=== PATIENT | male | born 1980 | race Asian ===

== ENCOUNTER 2024-12-28 16:08 | Emergency (ER) | payer BC, SELFPAY ==
[2024-12-28 16:10] VITALS: BP 141/96
[2024-12-28 16:34] VITALS: BP 147/101
[2024-12-28 16:35] VITALS: BMI 24.3
[2024-12-28 16:36] VITALS: BP 140/89
--- NOTE | 2024-12-28 16:55 | EDRN ---
Dr. Rivas in room w / pt at this time.
[2024-12-28 16:57] LABS: Hematocrit 46.9 % (39.0-52.0); Hemoglobin 16.0 g/dL (13.0-18.0); Mean Corp Hgb Conc. 34.1 g/dL (33.0-37.0); Mean Corpuscular Volume 86.5 fL (80.0-94.0); Nucleated Red Blood Cells % 0 % (-); Platelet Count 180 10^3/uL (130-400); Red Cell Dist. Width 13.0 % (11.5-14.5)
[2024-12-28 17:00] VITALS: BP 121/75
--- NOTE | 2024-12-28 17:01 | ED.GENMED ---
History of Present Illness
<Carter Rivas MD, Resident - Last Filed: 12/28/24 17:52>
General
Chief Complaint: Heart Rate Problem
Source: patient
Time Seen by Provider: 12/28/24 16:35
History of Present Illness
History of Present Illness:
Patient is a 44-year-old male with PMH of STEMI s/p RCA stents x 2 (2012), NSTEMI w/ stent restenosis s/p angioplasty and placement of new RCA stent (2021), intraoperative VT, SVT, atrial fibrillation (2021), HTN, T2DM and HLD who presents to the
[place] ED with an episode of tachycardia this afternoon. Patient was standing while chatting with friends around 2 PM when he developed palpitations and fast heart rate that were associated with weakness, exhaustion, shortness of breath,
diaphoresis, and lightheadedness. Patient stepped outside and drank less water. The tachycardia and palpitations lasted approximately 2 minutes. Patient checked his Apple Watch during the episode, and showed a heart rate of 220 bpm. This episode
does not feel like his prior DC episodes. At the bedside, patient has no current symptoms. Denies chest pain, arm pain, jaw pain, fever, chills, abdominal pain, N/V/D, or urinary symptoms. Denies recent drug or alcohol use.
Past History
<Carter Rivas MD, Resident - Last Filed: 12/28/24 17:52>
Past History
ED Past Medical History: CAD (Single vessel), HTN, Hypercholesterolemia, DC and Psychiatric (Anxiety)
ED Past Surgical History: None
Social History
Tobacco: Former smoker
Alcohol: Occasional
Drug: None
Personal:
Living: with family
Employment: Employed
Family History
Family History: Hypertension and CAD
Review of Systems
<Carter Rivas MD, Resident - Last Filed: 12/28/24 17:52>
Review of Systems
Constitutional: Reports fatigue; Denies fever or chills
Respiratory: Reports trouble breathing
Cardiac: Reports diaphoresis and palpitations; Denies chest pain or syncope
ABD/GI: Denies abdominal pain, nausea, vomiting or diarrhea
: Denies dysuria, frequency or urgency
Neurological: Reports dizzy
Psychiatric: Reports anxiety
Phy Exam
<Carter Rivas MD, Resident - Last Filed: 12/28/24 17:52>
Physical Exam
Physical Exam:
General: NAD. Conversant.
CV: Tachycardic (low 100s). Regular rhythm. No M/R/G. Pulses 2+ upper extremities. Extremities well-perfused.
Pulm: CTAB. No wheezes or crackles. No cyanosis.
GI: Soft, nontender. Nondistended.
Neuro: A&O x 3. NFD. CN II through XII grossly intact.
Course
<Carter Rivas MD, Resident - Last Filed: 12/28/24 17:52>
Orders/Labs/Results
Orders:
Orders
12/28/24 16:09
EKG [Electrocardiogram (*1)] Urgent
Reason for Study: Tachycardia
EKG- Treatment ONCE
12/28/24 16:49
Cardiac Monitoring- Treatment ONCE
IV Insert/Care/Rem.- Treatment PRN
12/28/24 16:50
Complete Blood Count/With Diff Urgent
Comprehensive Metabolic Panel Urgent
Troponin I Urgent
Abnormal Lab Results
12/28/24
16:50
MPV 11.9 H fL
(7.4-10.4)
Absolute Neuts (auto) 7.1 H 10^3/uL
(1.4-6.5)
Absolute Monos (auto) 0.7 H 10^3/uL
(0.1-0.6)
Neutrophils % 76.9 H %
(42.2-75.2)
Lymphocytes % 14.4 L %
(20.5-51.1)
Glucose 149 H mg/dl
(70-99)
12/28/24 16:50
12/28/24 16:50
Vital Signs
Initial and Last Documented VS:
Initial Vital Signs
Temp Pulse Resp BP Pulse Ox
36.9 C 110 16 141/96 98
12/28/24 16:10 12/28/24 16:10 12/28/24 16:10 12/28/24 16:10 12/28/24 16:10
Last Documented Vital Signs
Temp Pulse Resp BP Pulse Ox
36.9 C 93 13 121/75 97
12/28/24 16:10 12/28/24 17:58 12/28/24 17:45 12/28/24 17:00 12/28/24 17:45
<Daniel Pascal MD - Last Filed: 12/28/24 18:07>
Orders/Labs/Results
Orders:
Orders
12/28/24 16:09
EKG [Electrocardiogram (*1)] Urgent
Reason for Study: Tachycardia
EKG- Treatment ONCE
12/28/24 16:49
Cardiac Monitoring- Treatment ONCE
IV Insert/Care/Rem.- Treatment PRN
12/28/24 16:50
Complete Blood Count/With Diff Urgent
Comprehensive Metabolic Panel Urgent
Troponin I Urgent
Abnormal Lab Results
12/28/24
16:50
MPV 11.9 H fL
(7.4-10.4)
Absolute Neuts (auto) 7.1 H 10^3/uL
(1.4-6.5)
Absolute Monos (auto) 0.7 H 10^3/uL
(0.1-0.6)
Neutrophils % 76.9 H %
(42.2-75.2)
Lymphocytes % 14.4 L %
(20.5-51.1)
Glucose 149 H mg/dl
(70-99)
12/28/24 16:50
12/28/24 16:50
Vital Signs
Initial and Last Documented VS:
Initial Vital Signs
Temp Pulse Resp BP Pulse Ox
36.9 C 110 16 141/96 98
12/28/24 16:10 12/28/24 16:10 12/28/24 16:10 12/28/24 16:10 12/28/24 16:10
Last Documented Vital Signs
Temp Pulse Resp BP Pulse Ox
36.9 C 93 13 121/75 97
12/28/24 16:10 12/28/24 17:58 12/28/24 17:45 12/28/24 17:00 12/28/24 17:45
<Carter Rivas MD, Resident - Last Filed: 12/28/24 17:52>
MDM/Problems Addressed
Differential Diagnosis Includes:
Arrhythmia
A-fib, a flutter, AVNRT, AVRT, V. tach
Anxiety
Myocardial infarction
Infection
MDM/Problems Addressed:
Assessment: Patient is a 44-year-old male with PMH of CAD s/p stent, HTN, T2DM, and HLD who presents to the [place] ED with an episode of tachycardia to the 220s and palpitations that lasted approximately 1-2 minutes and was associated with
shortness of breath, diaphoresis, weakness, and lightheadedness. No chest, jaw, or arm pain. Resolved spontaneously, with no current symptoms in the ED. EKG shows sinus tachycardia in the low 100s in the ED. Troponin 0.033. CBC, CMP
unremarkable. Suspect transient arrhythmia. Workup ongoing.
Plan:
#Tachycardia
EKG
Labs: CBC, CMP, troponin
<Carter Rivas MD, Resident - Last Filed: 12/28/24 17:52>
*Pulse Oximetry
SaO2: 98
Oxygen Mode of Delivery: Room air
Patient hypoxic: no
*Critical Care Note
Total Time (30-74mins, 75-104mins- exclusive of procedures): Not Applicable
ED Attending Note
<Carter Rivas MD, Resident - Last Filed: 12/28/24 17:52>
-
Portions of this chart may have been created with voice recognition software.� Occasional wrong word or��sound alike� substitutions may have occurred due to the inherent limitations of voice recognition software.
<Daniel Pascal MD - Last Filed: 12/28/24 18:07>
ED Attending Note
Patient seen and examined by attending physician: Yes
ED Attending Note:
I have seen and evaluated the patient with a [id number] encounter. I have spoken to the advance practicer provider and involved in the medical history, the physical exam, medical decision making.
Evaluation and management service: agree unless noted differently below.
Results interpretation: agree unless noted differently below.
Focused HPI: 44-year-old male with a past medical history of hypertension, hyperlipidemia, CAD status post stents, history of paroxysmal A-fib on Eliquis who presents to the emergency department for evaluation after an episode of palpitations.
Patient reports onset of symptoms just prior to arrival while he was talking to a friend. He says that symptoms lasted for few minutes and resolved. He was wearing his Apple Watch which at the time marked his heart rate at 220 (I was able to
review the heart rate monitor and indeed his heart rate was listed between 210 and 220 at the time; unfortunately no EKG tracing available). He says he had some associated dizziness and shortness of breath during the episode but did not have any
chest pain. His symptoms have completely resolved but ultimately came to the ER to be assessed. Denies having had similar symptoms in the past. He denies any known history of arrhythmia. He sees Dr. Carr for his cardiology care.
Physical exam: Awake and alert nondistressed. Was tachycardic in triage but vital signs have normalized by my assessment. He has no cardiac rubs gallops or murmurs. His lungs sound clear to auscultation. He has no edema in his extremities and no
JVD.
Medical Decision Makin-year-old male with history as noted presents for evaluation after an episode of palpitations with heart rate over 200 that lasted for a few minutes and has resolved. Vitals and exam as above. His EKG here in triage
shows sinus tachycardia�he is sinus rhythm on the monitor with heart rate of 90 during my assessment. Labs here are unremarkable. He denies any chest pain at any point in time but troponin was sent in triage this was negative. Suspect that this
was an arrhythmia and given his history of paroxysmal A-fib in the past this seems to be the likeliest diagnosis. Will discuss case with cardiology.
Discussed with cardiology suspect that this was likely a SVT episode. Patient completely asymptomatic now has been stable during ER observation. He already has known history of paroxysmal A-fib is on Eliquis and metoprolol. They recommended
maintaining these medications and they will follow-up with patient in the office on Monday. Patient is comfortable with this plan. Stable for discharge at this point.
Discharge Plan
Departure
Patient Disposition: Home (Routine Discharge)
Date of Disposition: 12/28/24
Time of Disposition: 18:06
Patient with high blood pressure during this ER visit?: Yes
Discharge Problem:
Palpitations
Instructions: Palpitations (DC)
Prescriptions:
No Action
clopidogrel 75 MG tablet
75 mg PO DAILY Qty: 30 11RF
losartan 25 MG tablet
25 mg PO DAILY Qty: 30 11RF
Eliquis 5 MG tablet
5 mg PO BID Qty: 60 11RF
metoprolol succinate 50 MG tablet extended release 24 hr
50 mg PO DAILY Qty: 30 11RF
rosuvastatin 40 MG tablet
40 mg PO HS Qty: 30 11RF
Jardiance 10 MG tablet
10 mg PO DAILY Qty: 30 0RF
Referrals:
Carter Lopez DO [Family Provider, Family Practice]
Jt Carr MD [Active, Cardiology] - Call in 1-3 days for appt
Activity Restrictions/Additional Instructions:
You should follow-up with a dead mail checker on Monday�if you do not receive a call by Monday late morning please call the office to confirm your follow-up appointment. If you experience any additional palpitations or if you develop any chest pain or
any other concerning symptoms please return to the ER to be reassessed.
Thank you for visiting the Emergency Department at [facility].
1. Please schedule a follow up appointment as directed. Call first thing tomorrow morning to make an appointment.
2. If indicated, please take your medications as instructed and indicated on discharge paperwork.
3. If any of your symptoms do not improve, or persist, or become more severe within 6-12 hours, please return to the emergency department for further care.
4. Please return to the emergency department if you develop a headache, neck pain/stiffness, fever greater than 100.4F, chest pain, shortness of breath, persistent nausea, vomiting, slurred speech, difficulty walking, numbness/tingling, weakness,
signs of infection or any other symptoms that are worrisome to you.
Please call [phone] if you have any questions.
Interventions
Interventions:
*Risk Screen - Suicide Last Done: 12/28/24 16:10
*General Assessment Last Done: 12/28/24 16:37
*ED- Fall Risk Assessment Last Done: 12/28/24 16:37
*ED COVID-19 Vaccine History Last Done: 12/28/24 16:37
*ED Influenza Vaccine History Last Done: 12/28/24 16:37
ED- Cardiac Assessment Last Done: 12/28/24 16:39
ED- Pulmonary Assessment Last Done: 12/28/24 16:39
Discharge Date and Time
Print Language: MARTINIQUAIS
[2024-12-28 17:26] LABS: ALT (SGPT) 33 U/L (0-50); AST (SGOT) 31 U/L (17-59); Albumin 4.7 g/dl (3.5-5.0); Alkaline Phosphatase 68 U/L (38-126); Blood Urea Nitrogen 20 mg/dl (9-20); Calcium 9.7 mg/dl (8.4-10.2); Carbon Dioxide 28 mmol/L (22-30); Chloride 104 mmol/L (98-107); Estimated Creatinine Clearance 89 ml/min; Glucose 149 mg/dl (70-99); Potassium 3.9 mmol/L (3.5-5.1); Sodium 136 mmol/L (135-145); Total Protein 7.8 g/dl (6.3-8.2); Troponin I 0.033 ng/ml; eGFR > 60.00
[2024-12-28 18:00] VITALS: BP 127/80
--- NOTE | 2024-12-28 18:08 | EDRN ---
Dr. Pascal in room w/ pt at this time.
== END 2024-12-28 18:17 | disposition home or self-care (01) ==
LOC: EMR 16:08
PROVIDERS: EMERGENCY PHYSICIAN Emergency Medicine; FAMILY PHYSICIAN Family Medicine
DX: R00.2 Palpitations (principal); E11.9 Type 2 diabetes mellitus without complications; I48.0 Paroxysmal atrial fibrillation; I25.10 Atherosclerotic heart disease of native coronary artery without angina pectoris; I10 Essential (primary) hypertension; E78.00 Pure hypercholesterolemia, unspecified; I25.2 Old myocardial infarction; F41.9 Anxiety disorder, unspecified; Z79.01 Long term (current) use of anticoagulants; Z79.02 Long term (current) use of antithrombotics/antiplatelets; Z79.84 Long term (current) use of oral hypoglycemic drugs; Z95.5 Presence of coronary angioplasty implant and graft; Z87.891 Personal history of nicotine dependence; Z82.49 Family history of ischemic heart disease and other diseases of the circulatory system
CPT/HCPCS: 99284; 80053; 84484; 85025; 93005

== ENCOUNTER → 2025-01-27 14:53 | Outpatient (REF) | payer BC, SELFPAY | LOC: RCS 14:53 | PROVIDERS: ATTENDING PHYSICIAN Nurse Practitioner; FAMILY PHYSICIAN Family Medicine | DX: R06.02 Shortness of breath (principal); R00.2 Palpitations | CPT/HCPCS: 93306 ==